=== PATIENT | female | born 1975 | race Caucasian/White ===

== ENCOUNTER 2021-02-14 11:19 | Outpatient (CLI) | payer SELFPAY ==
[2021-02-14 12:41] LABS: SARS-CoV-2 Ag Negative (Negative)
== END 2021-02-14 11:20 | disposition home or self-care (01) ==
LOC: CHSLAB 11:22
PROVIDERS: PCP Physician Assistant; Visit Provider Physician Assistant
DX: Z20.822 Contact with and (suspected) exposure to COVID-19 (principal)
CPT/HCPCS: 87426; C9803

== ENCOUNTER 2024-06-07 16:25 | Outpatient (CLI) | payer OTHER, SELFPAY ==
--- NOTE | ~2024-06-07 | XR_ITS ---
EXAMINATION: XR ankle LT min 3V DATE: 06/07/2024 17:05 INDICATION: Left ankle pain TECHNIQUE: Anteroposterior, oblique, mortise, and lateral views of the left ankle were obtained. COMPARISON: None. FINDINGS: Alignment is normal. No fracture. Joint spaces are normal. Small Achilles and plantar calcaneal spurs . Additional tiny enthesophyte at the medial malleolus. Soft tissues are unremarkable. IMPRESSION: 1. No acute osseous abnormality. Reviewed, dictated and finalized at location A.
--- NOTE | ~2024-06-07 | XR_ITS ---
EXAMINATION: XR knee LT 3V DATE: 06/07/2024 17:06 INDICATION: Left knee pain TECHNIQUE: AP, lateral and sunrise views of the left knee were obtained COMPARISON: None. FINDINGS: Alignment is normal. No fracture. Joint spaces appear normal on nonweightbearing imaging. Likely smal l to moderate-sized left knee joint effusion. Small enthesophyte at the proximal pole of the patella. . Soft tissues are otherwise unremarkable. IMPRESSION: 1. Small proximal patellar enthesophyte. No other osseous abnormality. 2. Likely small to moderate-sized left knee joint effusion. Reviewed, dictated and finalized at location A.
== END 2024-06-07 16:26 | disposition home or self-care (01) ==
LOC: CHSIMG 16:31
PROVIDERS: PCP Family Medicine; Visit Provider Family Medicine
DX: M25.572 Pain in left ankle and joints of left foot (principal); M25.562 Pain in left knee; M25.462 Effusion, left knee
CPT/HCPCS: 73562; 73610